=== PATIENT | male | born 1955 | race Two or more races ===

== ENCOUNTER 2022-08-06 15:19 | Emergency (ER) | payer MEDICARE, OTHER ==
[~2022-08-06] VITALS: Ht 182.9 cm; Wt 103.3 kg
[2022-08-06] MEDS ORDERED: PANTOPRAZOLE 40 MG/10 ML VIAL INJ IV ONE (15:45)
[2022-08-06] MEDS ORDERED: SODIUM CHLORIDE 0.9% 500 ML IVB ONE (15:45)
[2022-08-06] MEDS ORDERED: ONDANSETRON HCL 4 MG/2 ML VIAL IV ONE (15:45)
[2022-08-06 16:02] LABS: Basophils # (auto) 0.1 10 ^3/uL (0-0.2); Basophils % (auto) 1.1 % (0.0-2.0); Eosinophils # (auto) 0.2 10 ^3/uL (0-0.8); Eosinophils % (auto) 2.8 % (0.0-7.0); Lymphocytes # (auto) 1.9 10 ^3/uL (0.4-5.4); Mean Corpuscular Hgb Conc. 36.1 g/dL (32.0-36.0); Monocytes # (auto) 0.7 10 ^3/uL (0-1.3)
[2022-08-06 16:03] LABS: Hematocrit 45.8 % (41.0-53.0); Hemoglobin 16.6 g/dL (13.5-17.5); Lymphocytes % (auto) 21.3 % (10.0-50.0); Mean Corpuscular Hemoglobin 34.7 pg (28.0-32.0); Mean Corpuscular Volume 96.1 fL (80.0-100.0); Monocytes % (auto) 7.4 % (0.0-12.0); Neutrophils % (auto) 67.4 % (37.0-80.0); Nucleated Red Blood Cells % 0.5 %; Red Blood Cells 4.77 10^6/uL (4.5-5.90)
[2022-08-06 16:13] LABS: Urine Bacteria None Seen /hpf (None Seen); Urine WBC None Seen /hpf (0 - 3)
[2022-08-06 16:18] LABS: Albumin 4.3 g/dL (3.4-5.0); Calcium 10.1 mg/dL (8.5-10.1); Magnesium 2.4 mg/dL (1.6-2.6); Potassium 4.2 mmol/L (3.5-5.1)
[2022-08-06 16:22] LABS: BUN/Creatinine Ratio 30.2; Bilirubin, Total 0.6 mg/dL (0.2-1.0); Total Protein 7.4 g/dL (6.4-8.2)
[2022-08-06 16:28] LABS: Urine Specific Gravity 1.019 (1.001-1.035)
[2022-08-06 16:29] LABS: Urine Blood Normal /uL (Negative)
[2022-08-06] MEDS ORDERED: TRAM-297 PO (17:27)
[2022-08-06] MEDS ORDERED: ONDA-144 PO (17:27)
[2022-08-06 17:52] VITALS: BP 136/78
== END 2022-08-06 17:52 | disposition home or self-care (01) ==
LOC: ER 15:19
DX: K80.20 Calculus of gallbladder without cholecystitis without obstruction (principal); J44.9 Chronic obstructive pulmonary disease, unspecified; E11.9 Type 2 diabetes mellitus without complications; I10 Essential (primary) hypertension
CPT/HCPCS: 36415; 76705; 80053; 81001; 83690; 83735; 84484; 85025; 96361; 96374; 96375; 99284; C9113; J2405; J7040

== ENCOUNTER 2022-09-06 01:13 | Emergency (ER) | payer MEDICARE, OTHER ==
[~2022-09-06] VITALS: Ht 172.7 cm; Wt 97.7 kg
[~2022-09-06 01:13] MED LIST: ONDA-144 PO; TRAM-297 PO
[2022-09-06 01:20] VITALS: BP 145/66
[2022-09-06 01:59] LABS: Basophils # (auto) 0 10 ^3/uL (0-0.2); Basophils % (auto) 0.3 % (0.0-2.0); Eosinophils # (auto) 0.2 10 ^3/uL (0-0.8); Eosinophils % (auto) 1.3 % (0.0-7.0); Hematocrit 46.8 % (41.0-53.0); Hemoglobin 16.1 g/dL (13.5-17.5); Lymphocytes # (auto) 1.5 10 ^3/uL (0.4-5.4); Lymphocytes % (auto) 11.5 % (10.0-50.0); Mean Corpuscular Hemoglobin 33.2 pg (28.0-32.0); Mean Corpuscular Hgb Conc. 34.4 g/dL (32.0-36.0); Mean Corpuscular Volume 96.7 fL (80.0-100.0); Monocytes # (auto) 0.8 10 ^3/uL (0-1.3); Monocytes % (auto) 5.8 % (0.0-12.0); Neutrophils # (auto) 10.7 10 ^3/uL (1.6-8.6); Neutrophils % (auto) 81.1 % (37.0-80.0); Red Blood Cells 4.84 10^6/uL (4.5-5.90); Red Cell Distribution Width 14.2 % (11.8-14.3); White Blood Cell 13.1 10^3/uL (4.4-10.8)
[2022-09-06 02:28] LABS: Albumin 4.1 g/dL (3.4-5.0); BUN/Creatinine Ratio 28.7; Potassium 3.3 mmol/L (3.5-5.1)
[2022-09-06 02:28] LABS: Urine Bacteria FEW /hpf (None Seen); Urine Blood Negative /uL (Negative); Urine Mucus FEW (None Seen); Urine Specific Gravity 1.017 (1.001-1.035); Urine WBC <1 /hpf (0 - 3)
[2022-09-06 02:31] LABS: Bilirubin, Total 0.8 mg/dL (0.2-1.0)
[2022-09-06] MEDS ORDERED: DOCU-94 PO (07:56)
== END 2022-09-06 10:20 | disposition left against medical advice (07) ==
LOC: ER 01:13
DX: K59.00 Constipation, unspecified (principal); R33.9 Retention of urine, unspecified; J44.9 Chronic obstructive pulmonary disease, unspecified; E11.9 Type 2 diabetes mellitus without complications; I10 Essential (primary) hypertension
CPT/HCPCS: 36415; 51702; 74176; 80053; 81001; 82150; 83690; 85025

== ENCOUNTER 2023-02-18 06:17 | Inpatient (IN) | payer MEDICARE, OTHER ==
[2023-02-15 13:27] LABS: Basophils # (auto) 0.1 10 ^3/uL (0-0.2); Basophils % (auto) 1.1 % (0.0-2.0); Eosinophils # (auto) 0.4 10 ^3/uL (0-0.8); Eosinophils % (auto) 4.4 % (0.0-7.0); Hematocrit 48.1 % (41.0-53.0); Hemoglobin 16.3 g/dL (13.5-17.5); Lymphocytes # (auto) 1.9 10 ^3/uL (0.4-5.4); Lymphocytes % (auto) 22.9 % (10.0-50.0); Mean Corpuscular Hemoglobin 33.1 pg (28.0-32.0); Mean Corpuscular Hgb Conc. 33.8 g/dL (32.0-36.0); Mean Corpuscular Volume 97.9 fL (80.0-100.0); Monocytes # (auto) 0.8 10 ^3/uL (0-1.3); Monocytes % (auto) 9.7 % (0.0-12.0); Neutrophils # (auto) 5.2 10 ^3/uL (1.6-8.6); Neutrophils % (auto) 61.9 % (37.0-80.0); Nucleated Red Blood Cells % 0.1 %; Red Blood Cells 4.91 10^6/uL (4.5-5.90); Red Cell Distribution Width 14.7 % (11.8-14.3); White Blood Cell 8.4 10^3/uL (4.4-10.8)
[2023-02-15 13:37] LABS: Urine Bacteria NONE SEEN /hpf (None Seen); Urine Blood Negative /uL (Negative); Urine WBC <1 /hpf (0 - 3)
[2023-02-15 13:40] LABS: INR 0.98 (0.9-1.15)
[2023-02-15 14:06] LABS: Calcium 9.8 mg/dL (8.5-10.1); Potassium 3.4 mmol/L (3.5-5.1)
[2023-02-15 14:11] LABS: Bilirubin, Total 0.5 mg/dL (0.2-1.0); Total Protein 7.6 g/dL (6.4-8.2)
[~2023-02-18] VITALS: Ht 172.7 cm; Wt 109.1 kg
[2023-02-18] VITALS (8 sets, daily range): BP systolic 105–137; BP diastolic 55–73; PULSE 67–90; RESP 14–18; TEMP 98.1–98.2; O2SAT 90–99
[~2023-02-18 06:17] MED LIST changes: +CHLO25TA2 PO; +DILT120C54 PO; +EMPA1TAB3 PO; +HYDR-4297 PO; +LISI20TA56 PO; +METO1TAB9 PO; -ONDA-144 PO; +POTA10TA51 PO; +ROSU10TA16 PO; -TRAM-297 PO
[2023-02-18] MEDS ORDERED: ceFAZolin 1GM/50ML 100 ML IV ONE (06:49)
[2023-02-18] MEDS ORDERED: MIDAZOLAM HCL 2MG/2ML 2ml VIAL (1mg/ml) ONE (07:39)
[2023-02-18] MEDS ORDERED: fentaNYL CITRATE 100 MCG/2 ML VL ONE (07:39)
[2023-02-18] MEDS ORDERED: PROPOFOL 10 MG/ML 20 ML IV ONE ×2 (07:40→09:11)
[2023-02-18] MEDS ORDERED: ePHEDrine SULFATE 50 MG/ML AMP ONE (07:40)
[2023-02-18] MEDS ORDERED: DexAMETHasone SOD PHOS 10MG/1ML VIAL INJ ONE (07:40)
[2023-02-18] MEDS ORDERED: ONDANSETRON HCL 4 MG/2 ML VIAL ONE (07:40)
[2023-02-18] MEDS ORDERED: GLYCOPYRROLATE 0.2 MG/ML 1ML VIAL ONE (07:40)
[2023-02-18] MEDS ORDERED: ROCURONIUM 10MG/ML 10ML VIAL IV ONE (07:40)
[2023-02-18] MEDS ORDERED: HYDROmorphone HCL 2 MG/ML VL/or syr ONE (07:53)
[2023-02-18] MEDS ORDERED: ceFAZolin 1GM VL ONE (08:05)
[2023-02-18] MEDS ORDERED: MORPHINE SULFATE INJ 2 MG/ml SYRG IV PRN (08:45)
[2023-02-18] MEDS ORDERED: NITROGLYCERIN 0.4 MG SL TAB SL PRN (08:45)
[2023-02-18] MEDS ORDERED: ONDANSETRON HCL 4 MG/2 ML VIAL IV PRN ×2 (08:45→12:45)
[2023-02-18] MEDS ORDERED: ACETAMINOPHEN 325 MG TAB PO PRN (08:45)
[2023-02-18] MEDS ORDERED: ceFAZolin 1GM/50ML 50 ML IV SCH (08:45)
[2023-02-18] MEDS ORDERED: SUGAMMADEX 200mg/2ml Vial (100MG/ML) IV ONE (09:10)
[2023-02-18] MEDS ORDERED: MINERAL OIL TOPICAL 10ml TOP ONE (09:58)
[2023-02-18] MEDS ORDERED: ACCU-CHEK COMFORT CURVE STRIP VI ONE (12:45)
[2023-02-18] MEDS ORDERED: FAMOTIDINE (10MG/ML) 2ML VL IV PRN (12:45)
[2023-02-18] MEDS ORDERED: HYDROmorphone HCL 2 MG/ML VL/or syr IV PRN (12:45)
[2023-02-18] MEDS ORDERED: IPRATROPIUM BROM 0.5 MG/2.5ML INH SOL ONE (13:05)
[2023-02-18] MEDS ORDERED: ALBUTEROL SULF 2.5 MG/0.5ML(0.5%) NEB SOLN ONE (13:05)
[2023-02-18] MEDS: MORPHINE SULFATE INJ 2 MG/ml SYRG IV PRN (13:41)
[2023-02-18] MEDS ORDERED: TAMSULOSIN HYDROCHLORIDE 0.4 MG CAP PO ONE (13:47)
[2023-02-18] MEDS: CYCLOBENZAPRINE HCL 10 MG TAB PO SCH ×2 (14:00→21:43)
[2023-02-18] MEDS: HYDROcodone-ACET 10/325MG TAB PO PRN (14:30)
[2023-02-18] MEDS ORDERED: KETAMINE 50mg/ML 10ml Vial (500mg/10ml) IV ONE (15:01)
[2023-02-18] MEDS: D5W/SOD CHLO 0.9% 1,000 ML IV SCH ×2 (16:28→18:20)
[2023-02-18] MEDS: DOCUSATE SOD 100 MG CAP PO SCH ×2 (16:28→21:44)
[2023-02-18] MEDS: ceFAZolin 1GM/50ML 50 ML IV SCH (16:29)
[2023-02-18] MEDS ORDERED: PREG50CA PO (16:50)
[2023-02-18] MEDS ORDERED: OMEP20TA PO (16:50)
[2023-02-18] MEDS ORDERED: DILT240C59 PO (16:50)
[2023-02-18] MEDS ORDERED: LISI20TA56 PO (16:50)
[2023-02-18] MEDS ORDERED: POTA10TA51 PO (16:50)
[2023-02-18] MEDS ORDERED: HYDR-4296 PO (16:50)
[2023-02-18] MEDS ORDERED: FURO20TA3 PO (16:50)
[2023-02-18] MEDS ORDERED: CHLO50TA PO (16:50)
[2023-02-18] MEDS ORDERED: ALBUTEROL SULF 2.5 MG/0.5ML(0.5%) NEB SOLN NEB PRN (18:00)
[2023-02-18] MEDS ORDERED: IPRATROPIUM BROM 0.5 MG/2.5ML INH SOL NEB PRN (18:00)
[2023-02-19] VITALS (10 sets, daily range): BP systolic 108–149; BP diastolic 47–84; PULSE 69–91; RESP 14–20; TEMP 97.7–98.3; O2SAT 92–97
[2023-02-19] MEDS: ceFAZolin 1GM/50ML 50 ML IV SCH (00:12)
[2023-02-19] MEDS: D5W/SOD CHLO 0.9% 1,000 ML IV SCH ×2 (03:45→10:49)
[2023-02-19] MEDS: CYCLOBENZAPRINE HCL 10 MG TAB PO SCH ×3 (05:38→21:55)
[2023-02-19] MEDS ORDERED: METO200T42 PO (09:30)
[2023-02-19] MEDS ORDERED: PREG-108 PO (09:30)
[2023-02-19] MEDS ORDERED: HYDR25TA87 PO (09:30)
[2023-02-19] MEDS ORDERED: CYCL-839 PO (09:31)
[2023-02-19] MEDS: DOCUSATE SOD 100 MG CAP PO SCH ×2 (10:00→21:46)
[2023-02-19] MEDS ORDERED: DEXTROSE (50%) 50ML SYRG IV PRN (10:45)
[2023-02-19] MEDS: ACCU-CHEK COMFORT CURVE STRIP VI SCH ×3 (10:49→21:58)
[2023-02-19] MEDS: InsuLIN REG 1unit/0.01ml Soln (100units/ml) SC SCH ×3 (10:50→21:58)
[2023-02-19] MEDS ORDERED: TAMS-35 PO (12:47)
[2023-02-19] MEDS: HYDROcodone-ACET 10/325MG TAB PO PRN (21:54)
[2023-02-19] MEDS ORDERED: OXYBUTYNIN CHL 5 MG TAB PO SCH (22:00)
[2023-02-20] VITALS (9 sets, daily range): BP systolic 150–162; BP diastolic 71–81; PULSE 81–102; RESP 18–24; TEMP 37.1; O2SAT 91–97
[2023-02-20] MEDS: MORPHINE SULFATE INJ 2 MG/ml SYRG IV PRN (01:45)
[2023-02-20] MEDS: D5W/SOD CHLO 0.9% 1,000 ML IV SCH ×2 (03:18→20:05)
[2023-02-20 05:19] LABS: Basophils # (auto) 0 10 ^3/uL (0-0.2); Eosinophils % (auto) 0.4 % (0.0-7.0); Lymphocytes # (auto) 0.9 10 ^3/uL (0.4-5.4); Monocytes # (auto) 1.3 10 ^3/uL (0-1.3); Neutrophils # (auto) 9.4 10 ^3/uL (1.6-8.6); Neutrophils % (auto) 80.2 % (37.0-80.0); White Blood Cell 11.7 10^3/uL (4.4-10.8)
[2023-02-20 05:21] LABS: Basophils % (auto) 0.4 % (0.0-2.0); Eosinophils # (auto) 0.1 10 ^3/uL (0-0.8); Hematocrit 37.6 % (41.0-53.0); Hemoglobin 13.3 g/dL (13.5-17.5); Lymphocytes % (auto) 7.5 % (10.0-50.0); Mean Corpuscular Hemoglobin 34.6 pg (28.0-32.0); Mean Corpuscular Hgb Conc. 35.3 g/dL (32.0-36.0); Mean Corpuscular Volume 97.9 fL (80.0-100.0); Monocytes % (auto) 11.5 % (0.0-12.0); Red Blood Cells 3.84 10^6/uL (4.5-5.90); Red Cell Distribution Width 14.8 % (11.8-14.3)
[2023-02-20 05:50] LABS: Potassium 2.9 mmol/L (3.5-5.1)
[2023-02-20] MEDS: CYCLOBENZAPRINE HCL 10 MG TAB PO SCH ×3 (05:51→21:14)
[2023-02-20] MEDS: hydrALAZINE HCL 20 MG/ML VL IV PRN (05:51)
[2023-02-20 05:53] LABS: BUN/Creatinine Ratio 36.6 (10.0-20.0); Calcium 8.6 mg/dL (8.5-10.1)
[2023-02-20] MEDS: InsuLIN REG 1unit/0.01ml Soln (100units/ml) SC SCH ×4 (05:57→21:21)
[2023-02-20] MEDS: ACCU-CHEK COMFORT CURVE STRIP VI SCH ×4 (05:58→21:17)
[2023-02-20] MEDS: HYDROcodone-ACET 10/325MG TAB PO PRN ×2 (06:13→19:51)
[2023-02-20] MEDS: POTASSIUM CHL 20MEQ/100ML 100 ML IV SCH ×3 (08:01→10:30)
[2023-02-20] MEDS: DOCUSATE SOD 100 MG CAP PO SCH ×2 (08:56→21:13)
[2023-02-20] MEDS: LISINOPRIL 20 MG TAB PO SCH ×2 (08:56→21:13)
[2023-02-20] MEDS: METOPROLOL SUCCINATE XL 50 MG TAB PO SCH (08:56)
[2023-02-20] MEDS ORDERED: POTASSIUM CHL 20 Meq TABLET PO ONE (10:45)
[2023-02-20] MEDS: hydrALAZINE HCL 25 MG TAB PO SCH ×2 (14:22→21:12)
[2023-02-20 15:04] LABS: Magnesium 2.7 mg/dL (1.6-2.6); Potassium 3.4 mmol/L (3.5-5.1)
[2023-02-21] VITALS (11 sets, daily range): BP systolic 139–166; BP diastolic 71–80; PULSE 78–82; RESP 17–19; TEMP 37.1; O2SAT 90–95
[2023-02-21] MEDS: hydrALAZINE HCL 25 MG TAB PO SCH ×3 (05:57→22:47)
[2023-02-21] MEDS: CYCLOBENZAPRINE HCL 10 MG TAB PO SCH ×3 (05:57→22:46)
[2023-02-21] MEDS: ACCU-CHEK COMFORT CURVE STRIP VI SCH ×5 (06:01→22:53)
[2023-02-21] MEDS: InsuLIN REG 1unit/0.01ml Soln (100units/ml) SC SCH ×4 (06:05→22:53)
[2023-02-21] MEDS: MORPHINE SULFATE INJ 2 MG/ml SYRG IV PRN (09:44)
[2023-02-21] MEDS: DOCUSATE SOD 100 MG CAP PO SCH ×2 (09:45→22:46)
[2023-02-21] MEDS: LISINOPRIL 20 MG TAB PO SCH ×2 (09:45→22:46)
[2023-02-21] MEDS: METOPROLOL SUCCINATE XL 50 MG TAB PO SCH (09:46)
[2023-02-21] MEDS ORDERED: POTASSIUM CHL 20 Meq TABLET PO ONE (10:15)
[2023-02-21 11:07] LABS: Basophils # (auto) 0 10 ^3/uL (0-0.2); Basophils % (auto) 0.3 % (0.0-2.0); Eosinophils # (auto) 0 10 ^3/uL (0-0.8); Eosinophils % (auto) 0.1 % (0.0-7.0); Hematocrit 39.6 % (41.0-53.0); Hemoglobin 13.7 g/dL (13.5-17.5); Lymphocytes # (auto) 0.6 10 ^3/uL (0.4-5.4); Lymphocytes % (auto) 4.5 % (10.0-50.0); Mean Corpuscular Hgb Conc. 34.6 g/dL (32.0-36.0); Mean Corpuscular Volume 98.3 fL (80.0-100.0); Monocytes # (auto) 0.9 10 ^3/uL (0-1.3); Monocytes % (auto) 6.9 % (0.0-12.0); Neutrophils # (auto) 11.6 10 ^3/uL (1.6-8.6); Neutrophils % (auto) 88.2 % (37.0-80.0); Nucleated Red Blood Cells % 0.1 %; Red Blood Cells 4.03 10^6/uL (4.5-5.90); Red Cell Distribution Width 14.9 % (11.8-14.3); White Blood Cell 13.1 10^3/uL (4.4-10.8)
[2023-02-21 11:10] LABS: BUN/Creatinine Ratio 28.8 (10.0-20.0); Calcium 8.8 mg/dL (8.5-10.1); Potassium 3.5 mmol/L (3.5-5.1)
[2023-02-21] MEDS: D5W/SOD CHLO 0.9% 1,000 ML IV SCH (12:45)
[2023-02-21] MEDS: HYDROcodone-ACET 10/325MG TAB PO PRN (22:46)
[2023-02-22] VITALS (9 sets, daily range): BP systolic 121–166; BP diastolic 52–80; PULSE 67–78; RESP 17–18; TEMP 97.4–98.2; O2SAT 93–96
[2023-02-22] MEDS: HYDROcodone-ACET 10/325MG TAB PO PRN ×2 (02:52→06:54)
[2023-02-22] MEDS: D5W/SOD CHLO 0.9% 1,000 ML IV SCH (05:25)
[2023-02-22 05:37] LABS: Basophils # (auto) 0 10 ^3/uL (0-0.2); Eosinophils # (auto) 0 10 ^3/uL (0-0.8); Hemoglobin 12.7 g/dL (13.5-17.5); Lymphocytes # (auto) 0.7 10 ^3/uL (0.4-5.4)
[2023-02-22 05:39] LABS: Basophils % (auto) 0.2 % (0.0-2.0); Eosinophils % (auto) 0.4 % (0.0-7.0); Hematocrit 36.2 % (41.0-53.0); Lymphocytes % (auto) 6.3 % (10.0-50.0); Mean Corpuscular Hemoglobin 34.4 pg (28.0-32.0); Mean Corpuscular Volume 98.3 fL (80.0-100.0); Monocytes % (auto) 8.3 % (0.0-12.0); Neutrophils % (auto) 84.8 % (37.0-80.0); Red Blood Cells 3.68 10^6/uL (4.5-5.90); Red Cell Distribution Width 14.9 % (11.8-14.3); White Blood Cell 11.8 10^3/uL (4.4-10.8)
[2023-02-22] MEDS: hydrALAZINE HCL 20 MG/ML VL IV PRN (05:46)
[2023-02-22] MEDS: hydrALAZINE HCL 25 MG TAB PO SCH ×3 (06:53→22:43)
[2023-02-22] MEDS: CYCLOBENZAPRINE HCL 10 MG TAB PO SCH ×3 (06:53→22:44)
[2023-02-22] MEDS: InsuLIN REG 1unit/0.01ml Soln (100units/ml) SC SCH ×4 (07:03→22:50)
[2023-02-22] MEDS: DOCUSATE SOD 100 MG CAP PO SCH ×2 (10:19→22:43)
[2023-02-22] MEDS: LISINOPRIL 20 MG TAB PO SCH (10:19)
[2023-02-22] MEDS: METOPROLOL SUCCINATE XL 50 MG TAB PO SCH (10:19)
[2023-02-22 10:27] LABS: Calcium 8.7 mg/dL (8.5-10.1); Potassium 3.6 mmol/L (3.5-5.1)
[2023-02-22 10:29] LABS: BUN/Creatinine Ratio 26.8 (10.0-20.0)
[2023-02-22] MEDS: ACCU-CHEK COMFORT CURVE STRIP VI SCH ×3 (11:28→22:44)
[2023-02-22] MEDS ORDERED: TAMSULOSIN HYDROCHLORIDE 0.4 MG CAP PO ONE ×2 (13:15→13:45)
[2023-02-22] MEDS: SODIUM CHLORIDE 0.9% 1,000 ML IV SCH (14:59)
[2023-02-22] MEDS: TAMSULOSIN HYDROCHLORIDE 0.4 MG CAP PO SCH (17:35)
[2023-02-22] MEDS: TOLTERODINE TARTRATE 1 MG TAB PO SCH (22:43)
[2023-02-23] MEDS: SODIUM CHLORIDE 0.9% 1,000 ML IV SCH (01:05)
[2023-02-23 05:00] VITALS: BP 125/54; PULSE 70; RESP 18; TEMP 99.5; O2SAT 92
[2023-02-23 06:09] LABS: BUN/Creatinine Ratio 47.6 (10.0-20.0); Calcium 8.1 mg/dL (8.5-10.1)
[2023-02-23 06:26] LABS: Potassium 2.8 mmol/L (3.5-5.1)
[2023-02-23] MEDS: hydrALAZINE HCL 25 MG TAB PO SCH ×2 (06:34→15:58)
[2023-02-23] MEDS: CYCLOBENZAPRINE HCL 10 MG TAB PO SCH ×2 (06:34→15:53)
[2023-02-23] MEDS: ACCU-CHEK COMFORT CURVE STRIP VI SCH ×3 (06:35→17:13)
[2023-02-23] MEDS: InsuLIN REG 1unit/0.01ml Soln (100units/ml) SC SCH ×3 (06:36→17:08)
[2023-02-23] MEDS ORDERED: POTASSIUM CHL 20 Meq TABLET PO ONE ×2 (06:45→10:15)
[2023-02-23 08:00] VITALS: BP 132/63; PULSE 68; PULSE 71; RESP 16; TEMP 98.3; O2SAT 94
[2023-02-23] MEDS ORDERED: DOCUSATE SOD 100 MG CAP PO ONE (10:15)
[2023-02-23] MEDS ORDERED: LACTULOSE 20Gm/30ML SOLN PO ONE (10:15)
[2023-02-23] MEDS: TOLTERODINE TARTRATE 1 MG TAB PO SCH (10:54)
[2023-02-23] MEDS: DOCUSATE SOD 100 MG CAP PO SCH (10:56)
[2023-02-23] MEDS: METOPROLOL SUCCINATE XL 50 MG TAB PO SCH (10:57)
[2023-02-23 12:00] VITALS: BP 141/73; PULSE 65; RESP 18; TEMP 98.2; O2SAT 93
[2023-02-23 15:05] VITALS: BP 141/73; PULSE 65; RESP 18; TEMP 98.2; O2SAT 93
[2023-02-23] MEDS: TAMSULOSIN HYDROCHLORIDE 0.4 MG CAP PO SCH (17:22)
== END 2023-02-23 18:21 | disposition home health service (06) | DRG 459 ==
LOC: SUR 06:17 → TELE 08:39 → TELE-CENTR 15:05
PROVIDERS: ADMIT Orthopaedic Surgery; ATTEND Internal Medicine
PROC: 0SG3071 Fusion of Lumbosacral Joint with Autologous Tissue Substitute, Posterior Approach, Posterior Column, Open Approach (ICD-10-PCS; 2023-02-18)
PROC: 01NB0ZZ Release Lumbar Nerve, Open Approach (ICD-10-PCS; 2023-02-18)
PROC: 01NR0ZZ Release Sacral Nerve, Open Approach (ICD-10-PCS; 2023-02-18)
PROC: 4A11X4G Monitoring of Peripheral Nervous Electrical Activity, Intraoperative, External Approach (ICD-10-PCS; 2023-02-18)
PROC: 0SG0071 Fusion of Lumbar Vertebral Joint with Autologous Tissue Substitute, Posterior Approach, Posterior Column, Open Approach (ICD-10-PCS; principal; 2023-02-18 07:35)
PROC: 5A09357 Assistance with Respiratory Ventilation, Less than 24 Consecutive Hours, Continuous Positive Airway Pressure (ICD-10-PCS; 2023-02-19)
DX: M48.07 Spinal stenosis, lumbosacral region (principal); N17.0 Acute kidney failure with tubular necrosis; M96.1 Postlaminectomy syndrome, not elsewhere classified; I10 Essential (primary) hypertension; E11.9 Type 2 diabetes mellitus without complications; M54.10 Radiculopathy, site unspecified; E66.01 Morbid (severe) obesity due to excess calories; E78.5 Hyperlipidemia, unspecified; J44.9 Chronic obstructive pulmonary disease, unspecified; N40.1 Benign prostatic hyperplasia with lower urinary tract symptoms; R33.8 Other retention of urine; E87.6 Hypokalemia; M19.90 Unspecified osteoarthritis, unspecified site; R79.89 Other specified abnormal findings of blood chemistry; Z83.3 Family history of diabetes mellitus; Z68.36 Body mass index [BMI] 36.0-36.9, adult; Z88.8 Allergy status to other drugs, medicaments and biological substances; M43.17 Spondylolisthesis, lumbosacral region; M54.17 Radiculopathy, lumbosacral region
CPT/HCPCS: 36415; 72100; 76000; 76775; 80048; 80053; 81001; 82962; 83735; 84132; 85025; 85610; 85730; 86850; 86900; 86901; 94640; 94660; 97110; 97116; 97163; 97530; G0378; J0690; J1100; J1815; J2250; J2405; J2704; J3480; J7042

== ENCOUNTER 2023-03-24 17:10 | Emergency (ER) | payer MEDICARE, OTHER ==
[~2023-03-24] VITALS: Ht 177.8 cm; Wt 93.7 kg
[~2023-03-24 17:10] MED LIST changes: -CHLO25TA2 PO; +CHLO50TA PO; +CYCL-839 PO; -DILT120C54 PO; +DILT240C59 PO; -HYDR-4297 PO; +HYDR25TA87 PO; -METO1TAB9 PO; +METO200T42 PO; +PREG-108 PO; -ROSU10TA16 PO
[2023-03-25 03:06] LABS: Urine Bacteria FEW /hpf (None Seen); Urine Blood Negative /uL (Negative); Urine Clarity Clear (Clear); Urine Color Yellow (Yellow); Urine Protein, UAD TRACE (Negative); Urine Specific Gravity 1.023 (1.001-1.035); Urine Urobilinogen Normal (Negative); Urine WBC 3 /hpf (0 - 3); Urine pH 5.5 (5.0-8.0)
[2023-03-25 03:28] VITALS: BP 142/81; PULSE 75; RESP 18; TEMP 98.2; O2SAT 97
== END 2023-03-25 03:31 | disposition home or self-care (01) ==
LOC: ER 17:10
DX: T83.098A Other mechanical complication of other urinary catheter, initial encounter (principal); R35.89 Other polyuria; E11.9 Type 2 diabetes mellitus without complications; I10 Essential (primary) hypertension; J44.9 Chronic obstructive pulmonary disease, unspecified; Z88.8 Allergy status to other drugs, medicaments and biological substances; Z79.899 Other long term (current) drug therapy
CPT/HCPCS: 51702; 81001